=== PATIENT | female | born 1965 | race Caucasian/White ===

== ENCOUNTER → 2019-02-13 | Outpatient (CLI) | payer OTHER | LOC: RAD 10:57 → NUC 10:57 | DX: Z12.31 Encounter for screening mammogram for malignant neoplasm of breast (principal); Z78.0 Asymptomatic menopausal state ==

== ENCOUNTER → 2019-02-27 | Outpatient (CLI) | payer OTHER | LOC: CAT 10:07 | DX: Z13.6 Encounter for screening for cardiovascular disorders (principal); E78.00 Pure hypercholesterolemia, unspecified; I25.10 Atherosclerotic heart disease of native coronary artery without angina pectoris ==

== ENCOUNTER → 2019-03-06 | Outpatient (CLI) | payer OTHER | LOC: CAT 10:42 | DX: I31.3 Pericardial effusion (noninflammatory) (principal); J47.9 Bronchiectasis, uncomplicated; A31.0 Pulmonary mycobacterial infection ==